=== PATIENT | female | born 1995 | race Caucasian/White ===

== ENCOUNTER 2017-02-24 03:30 | Inpatient (IN) | payer OTHER ==
[2017-02-24 03:50] VITALS: BMI 32.1
[2017-02-24 04:02] LABS: AMNISURE ROM TEST THERE IS A RUPTURE (NO RUPTURE); BILIRUBIN,URINE NEGATIVE (NEGATIVE); BLOOD/HEMOGLOBIN,URINE 1+ (NEGATIVE); GLUCOSE, URINE NEGATIVE (NEGATIVE); KETONES,URINE NEGATIVE (NEGATIVE); LEUKOCYTE ESTERASE ,URINE 1+ (NEGATIVE); NITRITES,URINE NEGATIVE (NEGATIVE); PROTEIN,URINE 1+ (NEGATIVE); UROBILINOGEN,URINE NORMAL (NORMAL)
[2017-02-24 04:09] LABS: APPEARANCE,URINE CLEAR (CLEAR); BACTERIA,URINE TRACE /HPF (NEGATIVE); COLOR,URINE YELLOW (YELLOW); RBC,URINE 0-3 /HPF (NEGATIVE); SQUAMOUS EPITHELIAL CELL,UR FEW /HPF (NEGATIVE)
[2017-02-24] MEDS ORDERED: ANCEF VIAL 1 GM ONE (05:11)
[2017-02-24] MEDS ORDERED: NS 50 ML IV + SPIKE MINIBAG* 50 ML IV ONE (05:11)
[2017-02-24] MEDS ORDERED: ANCEF VIAL 1 GM 1 GM in NS 50 ML IV + SPIKE MINIBAG* 50 ML IV PRN (05:19)
[2017-02-24 05:41] LABS: BASOPHILS % (AUTO) 0.2 % (0.2-1.0); EOSINOPHILS # (AUTO) 0.1 x10^3/uL (0.0-0.2); EOSINOPHILS % (AUTO) 0.7 % (0.9-2.9); HEMOGLOBIN 12.8 g/dL (12.0-16.0); LYMPHOCYTES # (AUTO) 2.4 X10^3/uL (1.3-2.9); LYMPHOCYTES % (AUTO) 22.6 % (21.0-51.0); MEAN CORPUSCULAR HEMOGLOBIN 31.6 pg (27.0-34.0); MEAN CORPUSCULAR HGB CONC 35.5 g/dL (33.0-35.0); MEAN PLATELET VOLUME 9.1 fL (7.4-11.0); MONOCYTES # (AUTO) 0.5 x10^3/uL (0.3-0.8); MONOCYTES % (AUTO) 4.4 % (0.0-13.0); NEUTROPHILS # (AUTO) 7.6 x10^3/uL (2.2-4.8); NEUTROPHILS % (AUTO) 72.1 % (42.0-75.0); PLATELET COUNT 280 X10^3/uL (150.0-450.0); RED BLOOD COUNT 4.05 X10^6/uL (3.5-5.4); RED CELL DISTRIBUTION WIDTH 12.4 % (11.6-16.5); WHITE BLOOD COUNT 10.5 X10^3/uL (3.6-10.0)
[2017-02-24] MEDS: LR 1000 ML IV 1,000 ML IV ONE ×2 (05:44→07:18)
[2017-02-24] MEDS ORDERED: LR 1000 ML IV 1,000 ML IV ONE (05:44)
[2017-02-24] MEDS ORDERED: DURAMORPH ONE (05:44)
[2017-02-24 05:45] LABS: BLOOD UREA NITROGEN 10 mg/dL (7-18); CALCIUM 8.6 mg/dL (8.5-10.1); CARBON DIOXIDE 20.7 mmol/L (21-32); CHLORIDE 105 mmol/L (98-107); CREATININE 0.63 mg/dL (0.55-1.02); GLUCOSE 93 mg/dL (65-99); SODIUM 137 mmol/L (136-145); eGFR BLACK RACES > 60 (>60); eGFR NON BLACK RACES > 60 (>60)
[2017-02-24] MEDS ORDERED: D5 1/2 NS 1000 ML 1,000 ML IV SCH (06:00)
[2017-02-24] MEDS: D5 1/2 NS 1000ML W PITOCIN 20 U/L 1,000 ML IV ONE ×3 (06:11→06:50)
[2017-02-24] MEDS ORDERED: NS IRRIGATION 1000 ML 1,000 ML IR ONE (06:32)
[2017-02-24] MEDS ORDERED: ZOFRAN INJ 4 MG VIAL IVP PRN ×2 (07:00→07:35)
[2017-02-24] MEDS ORDERED: BENADRYL INJ 50 MG VIAL IVP PRN ×4 (07:00→16:17)
[2017-02-24] MEDS ORDERED: DILAUDID INJ IVP PRN (07:00)
[2017-02-24] MEDS ORDERED: REGLAN INJ 10 MG VIAL IVP PRN ×2 (07:00→07:35)
[2017-02-24] MEDS ORDERED: PHENERGAN INJ 25 MG IVP PRN (07:00)
[2017-02-24] MEDS ORDERED: ADACEL TDaP IM ONE (07:35)
[2017-02-24] MEDS ORDERED: NARCAN INJ IVP PRN (07:35)
[2017-02-24] MEDS ORDERED: PERCOCET TAB 5/325 MG PO PRN (07:35)
[2017-02-24] MEDS ORDERED: MYLICON TAB 80 MG CHEW PO PRN (07:35)
[2017-02-24] MEDS ORDERED: D5 1/2 NS 1000 ML 1,000 ML with PITOCIN 20 UNITS IV SCH ×2 (08:00)
[2017-02-24] MEDS: ZANTAC PO SCH ×2 (09:20→21:35)
[2017-02-24] MEDS: TORADOL 30 MG VIAL IVP PRN ×3 (09:20→21:35)
[2017-02-24] MEDS: PRENATAL PLUS PO SCH (09:20)
[2017-02-25 04:59] LABS: HEMOGLOBIN 10.8 g/dL (12.0-16.0)
[2017-02-25] MEDS: MOTRIN TAB 800 MG PO PRN ×2 (07:51→16:00)
[2017-02-25] MEDS: COLACE CAP 100 MG PO SCH ×2 (08:42→20:38)
[2017-02-25] MEDS: PRENATAL PLUS PO SCH (08:43)
[2017-02-25] MEDS: ZANTAC PO SCH ×2 (08:43→20:38)
[2017-02-25] MEDS: PERCOCET TAB 5/325 MG PO PRN ×3 (10:23→23:38)
[2017-02-25] MEDS: BACTROBAN OINT TOP SCH ×2 (13:37→21:53)
[2017-02-26] MEDS: MOTRIN TAB 800 MG PO PRN (03:06)
[2017-02-26] MEDS ORDERED: DEPO-PROVERA CONTRACEPTIVE INJ IM ONE ×2 (05:51→06:20)
[2017-02-26] MEDS: BACTROBAN OINT TOP SCH (05:53)
[2017-02-26] MEDS: COLACE CAP 100 MG PO SCH (08:20)
[2017-02-26] MEDS: ZANTAC PO SCH (08:20)
[2017-02-26] MEDS: PRENATAL PLUS PO SCH (08:20)
[2017-02-26] MEDS: PERCOCET TAB 5/325 MG PO PRN (09:12)
[2017-02-26 09:19] VITALS: BP 122/71
== END 2017-02-26 12:00 | disposition home or self-care (01) | DRG 766 ==
LOC: ER 03:30 → LD 04:08 → MED/SURG 06:48
PROVIDERS: ADMIT Specialist; ATTEND Specialist
PROC: 3E0234Z Introduction of Serum, Toxoid and Vaccine into Muscle, Percutaneous Approach (ICD-10-PCS; 2017-02-24)
PROC: 10D00Z1 Extraction of Products of Conception, Low, Open Approach (ICD-10-PCS; principal; 2017-02-24 05:45)
DX: O64.1XX0 Obstructed labor due to breech presentation, not applicable or unspecified (principal); Z37.0 Single live birth; O99.613 Diseases of the digestive system complicating pregnancy, third trimester; O99.824 Streptococcus B carrier state complicating childbirth; B95.1 Streptococcus, group B, as the cause of diseases classified elsewhere; Z3A.37 37 weeks gestation of pregnancy
CPT/HCPCS: 36415; 80048; 81001; 84112; 85014; 85018; 85025; 86592; 86850; 86900; 86901; 96365; 99284; A4222; S0197; J0690; J1050; J1200; J1885; J7120